=== PATIENT | female | born 1990 ===

== ENCOUNTER 2025-03-23 21:01 | Inpatient (IN) ==
[2025-03-23] MEDS ORDERED: OXYTOCIN 30 UNITS/NSS 30 UNITS/500 ML BAG IV PRN (21:40)
[2025-03-23] MEDS ORDERED: LIDOCAINE 1% LOCAL 20 ML VIAL INFIL PRN (21:40)
[2025-03-23] MEDS: LACTATED RINGER'S 1,000 ML IV PRN (22:10)
[2025-03-23 22:36] LABS: Hematocrit (blood only) 35.5 % (37.0-47.0); Hemoglobin 11.8 g/dl (12.0-16.0); Mean Corpuscular Hemoglobin 28.8 pg (25.0-34.0); Mean Corpuscular Volume 86.6 fL (80.0-100.0); Platelet Count 267 K/uL (130-400); RDW Standard Deviation 47.8 fL (36.4-46.3); Red Blood Count 4.10 M/uL (4.20-5.40); White Blood Count 13.40 K/ul (4.8-10.8)
[2025-03-23] MEDS ORDERED: BUPIVACAINE 0.25% PF 30 ML VIAL EPI PRN (23:14)
[2025-03-23] MEDS ORDERED: NALOXONE HCL 0.4 MG/1 ML VIAL/CARP IV PRN (23:14)
[2025-03-23] MEDS ORDERED: ONDANSETRON INJ 2 MG/ML 2 ML VIAL IV PRN (23:14)
[2025-03-23] MEDS ORDERED: SODIUM CHLORIDE 0.9% PF INJ 10 ML VIAL EPI STA (23:14)
[2025-03-23] MEDS ORDERED: LIDOCAINE 2%/EPINEPHRINE 1:200,000 20 ML PF EPI STA (23:14)
[2025-03-23] MEDS ORDERED: LIDOCAINE 2% MPF LOCAL 5 ML VIAL EPI PRN (23:14)
[2025-03-23] MEDS ORDERED: SODIUM CHLORIDE 0.9% PF INJ 10 ML VIAL EPI PRN (23:14)
[2025-03-23] MEDS ORDERED: NALBUPHINE HCL INJ 10 MG/ML AMP IV PRN (23:14)
[2025-03-23] MEDS ORDERED: BUPIVACAINE 0.25% PF 30 ML VIAL EPI STA (23:14)
[2025-03-23] MEDS ORDERED: fentANYL 2 MCG/ML BUPIVacaine 0.125%-NSS 100ML BAG EPI PRN (23:14)
[2025-03-23] MEDS ORDERED: ROPIVACAINE 0.5% PF 5 MG/ML 20 ML VIAL EPI PRN (23:14)
[2025-03-23] MEDS ORDERED: diphenhydrAMINE 50 MG/ML VIAL IV PRN (23:14)
[2025-03-23] MEDS ORDERED: NALOXONE HCL 1 MG in SODIUM CHLORIDE 0.9% 1,000 ML IV PRN (23:14)
--- NOTE | 2025-03-23 23:16 | Anesthesiology Consultation ---
Date of Service March 23, 2025 Assessment & Plan (1) Encounter for pre-operative examination: Chart Review Chart Review: Patient NOT seen in Pre Admission Testing and Acceptable Risk for Labor Epidural Consults Requested none History Height/Weight Height: 5 ft 6 in Weight: 78.925 kg Allergies Allergy/AdvReac Type Severity Reaction Status Date / Time No Known Allergies Allergy Verified 03/17/25 14:05 Medications Home Medications Medication Instructions Recorded Confirmed Last Taken ferrous sulfate 1 tab PO DAILY 01/05/25 03/23/25 03/23/25 loratadine [Claritin] 1 tab PO DAILY PRN seasonal 01/05/25 03/17/25 02/01/25 allergies 21-iron fu-folic acid 1 tab PO DAILY 01/05/25 03/17/25 03/23/25 [ Complete] metoclopramide HCl 10 mg tablet mg 03/23/25 Unknown Active Medications Generic Name Dose Route Start Last Admin Trade Name Freq PRN Reason Stop Dose Admin Lactated Ringer's 1,000 mls @ 125 mls/hr 03/23/25 21:40 03/23/25 22:10 Lr IV 03/25/25 21:39 999 mls/hr .Q8H PRN Administration L&D Protocol Protocol Past Medical History Medical History (Updated 03/23/25 @ 23:16 by Esau Jiang MD) Encounter for pre-operative examination Miscarriage History of chicken pox Seasonal allergies Anemia Exercise / Class Metabolic Activity II 4-5 Yardwork/Stairs/Walk up hill Past Family History Family History Grandmother (Maternal) Breast cancer Aunt Breast cancer Father Leukemia Denies family history of Ovarian cancer Colorectal cancer Past Surgical History Surgical History S/P dilatation and curettage S/P sinus surgery History of vaginal surgery vaginal reconstruction S/P wisdom tooth extraction Past Anesthesia History No Hx of Anesthesia Complications and No Family Hx of Anesthesia Complications Social History Smoking Status: Never smoker Do You Dip or Chew Tobacco: No Hx Alcohol Use: No Hx Substance Use: No Physical Exam Vital Signs Last Vital Signs Temp 36.9 C 03/23/25 21:28 Pulse 73 03/23/25 23:31 Resp 18 03/23/25 21:28 BP 111/62 03/23/25 21:20 Pulse Ox 96 03/23/25 23:31 Testing Laboratory Results 03/23/25 22:21
[2025-03-23] MEDS: BUPIVACAINE 0.25% PF 30 ML VIAL ONE (23:37)
[2025-03-23] MEDS: LIDOCAINE 2%/EPINEPHRINE 1:200,000 20 ML PF ONE (23:37)
[2025-03-23] MEDS: fentANYL 2 MCG/ML BUPIVacaine 0.125%-NSS 100ML BAG ONE (23:38)
[2025-03-24] MEDS: OXYTOCIN 30 UNITS/NSS 30 UNITS/500 ML BAG IV PRN (01:35)
--- NOTE | 2025-03-24 01:58 | Delivery Summary ---
Vaginal Delivery Summary Date of Service March 24, 2025 Vaginal Delivery Summary and 1st Degree LAC Spontaneous vaginal delivery the patient arrived in active labor requested epidural ruptured membranes progressed to fully dilated and over several contractions pushed delivering a baby in occiput anterior position there was a double nuchal cord passed over the baby's head as it was loose gentle traction on the baby resulted in easy delivery live male infant vigorous no excessive f orce used after delivery baby was placed on mother's abdomen cord clamped and cut cord blood obtained placenta removed with traction IV Pitocin started small for first-degree tear repaired with 3-0 Vicryl sponge and instrument counts correct QBL per nursing record [facility] Vaginal Delivery Charge Delivery Type Details: and 1st Degree LAC
[2025-03-24] MEDS ORDERED: HYDROCORTISONE ACETATE 25 MG SUPP PR PRN (02:05)
[2025-03-24] MEDS: SODIUM CHLORIDE 0.9% PF INJ 10 ML VIAL ONE (04:54)
[2025-03-24] MEDS: BENZOCAINE 20% SPRY 85 APPLN/85 GM CAN EXT PRN (05:30)
[2025-03-24] MEDS: IBUPROFEN 600 MG TAB PO PRN (05:37)
--- NOTE | 2025-03-24 07:19 | Anesthesia Procedure Note ---
Date of Service March 24, 2025 Anesthesia Post Epidural Note Vital Signs Vital Signs: Temp Pulse Resp BP Pulse Ox 36.8 C 64 18 93/51 L 95 03/24/25 04:15 03/24/25 04:15 03/24/25 04:15 03/24/25 04:15 03/24/25 01:41 Pain Intensity Abdomen: Pain Intensity: 0 Notes Mental Status: alert / awake / arousable and participated in evaluation Nausea / Vomiting: adequately controlled Pain: adequately controlled Airway Patency, RR, SpO2: stable & adequate BP & HR: stable & adequate Hydration State: stable & adequate Neuraxial Anesthesia: was administered and sensory block is resolving Anesthetic Complications: no major complications apparent Epidural: Removed without complications and With tip intact
[2025-03-24] MEDS: PRENATAL VITAMIN 1 TAB PO SCH (07:38)
[2025-03-24] MEDS: DOCUSATE SODIUM 100 MG CAP PO SCH (07:38)
[2025-03-24] MEDS: ACETAMINOPHEN 325 MG TAB PO PRN (18:11)
[2025-03-24] MEDS: DIPHTHER/TETAN/PERTUS Vaccine (Tdap, Adol/Adult) 0.5mL IM ONE (18:12)
[2025-03-25 00:07] VITALS: RESP 16
[2025-03-25 06:14] LABS: Hematocrit (blood only) 31.3 % (37.0-47.0); Hemoglobin 10.4 g/dl (12.0-16.0); Mean Corpuscular Hemoglobin 28.8 pg (25.0-34.0); Mean Corpuscular Volume 86.7 fL (80.0-100.0); Platelet Count 239 K/uL (130-400); RDW Standard Deviation 47.8 fL (36.4-46.3); Red Blood Count 3.61 M/uL (4.20-5.40); White Blood Count 13.42 K/ul (4.8-10.8)
--- NOTE | 2025-03-25 07:38 | Obstetrical Progress Note ---
Date of Service March 25, 2025 Assessment & Plan (1) care following vaginal delivery: Plan stable, routine care. desires dc home. instructions reviewed. f/u 6 wk pp check. breast/rhpos/ri. Subjective Ambulation: ambulating normally Voiding: no voiding problems Diet Tolerance:: regular diet Lochia:: Small Feeding Type:: breast feeding no pain concerns, breast feeding. Constitutional: + as per Subjective / HPI Physical Exam Constitutional WD/WN, vitals as above Respiratory normal respiratory effort, lungs clear to auscultation Cardiovascular Rate/Rhythm: regular rate and regular rhythm Gastrointestinal (Abdomen) Inspection/Auscultation: abdomen normal to inspection Percussion/Palpation: abdomen soft Fundus firm 2cm down Musculoskeletal nt calves no edema Neurologic grossly normal Psychiatric A+Ox3, euthymic affect Results & Data Vital Signs (Past 12 Hours) Vital Signs Temp Pulse Resp BP Pulse Ox O2 Del Method 03/24/25 23:30 97.7 F 85 16 129/70 97 Room Air
[2025-03-25 08:31] VITALS: BP 107/71; TEMP 97.9; O2SAT 95
[2025-03-25 08:47] VITALS: PULSE 85
--- NOTE | 2025-03-26 08:38 | Coding Query ---
CODING QUERY To promote full compliance with coding requirements relating to patient care, provider participation is requested in all cases of athletic instructor uncertainty. Please assist us with the question(s) below: Coding Question(s): Please indicate weeks of gestation. Physician's Response(s): 40 Thank you Mckenzie Ramon Principal Diagnosis: "that condition established after study, to be chiefly responsible for occasioning the admission of the patient to the hospital for care." Co-Existing Principal Diagnosis: "when two or more diagnoses equally meet the criteria for principal diagnosis as determined by the circumstances of admission, diagnostic work up, and/or therapy provided, and the Alphabetic Index, Tabular List, or another coding guideline does not provide sequencing direction, any one of the diagnoses may be sequenced first." "When the physician has documented what appears to be a current diagnosis in the body of the record, but has not included the diagnosis in the final diagnostic statement, the physician should be asked whether the diagnosis should be added." (Source [facility]oding [facility] 2 QTR90. p3-4) TRACY
== END 2025-03-25 10:00 | disposition home or self-care (01) | DRG 807 ==
LOC: OPB 21:01 → 4S1 21:03 → 4E2 03-24 04:32